=== PATIENT | male | born 1980 | race Caucasian/White ===

== ENCOUNTER → 2019-05-31 08:24 | Outpatient (BNVA) | payer BC, SELFPAY | PROVIDERS: Family Provider Electrodiagnostic Medicine; PCP Electrodiagnostic Medicine; Visit Provider Urology | DX: N20.0 Calculus of kidney (principal); N99.89 Other postprocedural complications and disorders of genitourinary system; R31.0 Gross hematuria | CPT/HCPCS: 81001; 81003 ==

== ENCOUNTER 2019-06-01 09:42 | Outpatient (CLI) | payer BC, SELFPAY ==
--- NOTE | 2019-06-01 10:01 | XR_ITS ---
WS: [id number] ABDOMEN: SUPINE FILM HISTORY: right renal stone COMPARISON: 05/28/2019 Normal bowel gas pattern. Right kidney: 8 mm calcification over the central RIGHT renal pelvis. Otherwise negative. Left kidney: No renal or ureteral stone identified. XR/XR KUB [id number] IMPRESSION: 8 mm calcification at the RIGHT renal pelvis.
== END 2019-06-01 09:43 | disposition home or self-care (01) ==
PROVIDERS: Family Provider Electrodiagnostic Medicine; PCP Electrodiagnostic Medicine; Visit Provider Urology
DX: N20.0 Calculus of kidney (principal)
CPT/HCPCS: 74018

== ENCOUNTER 2019-06-08 11:39 | Day surgery (SDC) | payer BC, SELFPAY ==
[2019-06-08] VITALS (15 sets, daily range): BP systolic 100–125; BP diastolic 53–87; PULSE 85–101; RESP 12–20; TEMP 36.3–36.6; O2SAT 95–100; BMI 27.2
--- NOTE | 2019-06-08 11:37 | XR_ITS ---
WS: [id number] KUB, 06/08/2019 Clinical Data: Preop ESWL right renal calculus Comparison: KUB, 06/01/2019. Findings: There is a density overlying the midportion of the right kidney which may represent the right intrare nal calculus. The left kidney is normal. There are phleboliths in the true pelvis. XR/XR KUB [id number] Impression: Possible right intrarenal calculus.
[2019-06-08] MEDS: phenazopyridine 100 mg Tablet 200 MG PO (12:25)
--- NOTE | 2019-06-08 12:33 | ANES.PREANES ---
Pre-Anesthetic Assessment Pre-Anesthetic Assessment: Height/Weight: Height 1.78 m Weight 86.183 kg Preop Diagnosis: kidney stones Proposed Procedure: Operation Date: 06/08/19 13:00 Proposed Procedures p Cystoscopy(Not Applicable) - Ander Allred MD s Ureteral Stent Placement(Not Applicable) - MD anai Gandara ESWL(Not Applicable) - Ander Allred MD Familial anesthetic complications: No history of anesthesia or family trouble Was Beta Socrates taken within 24 hours: N/A Last intake: Intake Last Liquid Date 06/07/19 Last Liquid Time 20:00 Last Solid Date 06/07/19 Last Solid Time 20:00 Social: Social History: No alcohol and No tobacco Exam: Pre-Anes Outpt Exam: alert Airway: Cervical ROM: WNL MP: 3 Additional comments: missing tooth Pulmonary: Pulmonary: None reported CV/HEM: CV/HEM: None reported : : None reported Hepatic: Hepatic: None reported GI: GI: None reported Metabolic: Metabolic: None reported Musc/skel: Musc/skel: Lower Back Pain Neuropsych: Neuropsych: None reported Anesthetic Plan: ASA status: I Anesthesia: General Risk of > 500 ml blood loss (7ml/kg in children): No PFSH Anesthesia PFSH: Social History Smoking and tobacco status: former smoker Alcohol intake: never Data Anesthesia Cardiac Studies: No Data to Display
--- NOTE | 2019-06-08 12:35 | PM.HPUD ---
H&P update H&P Update: DATE OF SURGERY/PROCEDURE: 06/08/19 DATE H&P PERFORMED: 06/01/19 H&P UPDATE INFORMATION: H&P completed within last 30 days, No changes to prior documentation and H&P is in [facility] [place] EMR on date indicated PREOP DIAGNOSIS: Right renal calculus PRIMARY INDICATION FOR PROCEDURE: Right renal calculus with intermittent gross hematuria PLANNED PROCEDURE: Operation Date: 06/08/19 13:00 Proposed Procedures p Cystoscopy(Not Applicable) - Ander Allred MD s Ureteral Stent Placement(Not Applicable) - Ander Allred MD s ESWL(Not Applicable) - Ander Allred MD Conscious Sedation: ADDITIONAL INFORMATION: Originally plan cystoscopy to assess lateralization potential of gross hematuria but he is not currently having hematuria so we will treat the stone first and then make a decision based on the results of fragmentation as to whether to leave a stent and or not Full H&P Perinent History: Medical/Surgical History: Medical History (Updated 05/31/19 @ 09:30 by Georgina Montoya APRN) Gross hematuria (Acute) Right renal stone (Acute) Family History: Family History (Updated 05/31/19 @ 08:41 by Daphnie Botello RN) Father No problems noted. Family/Other CAD (coronary artery disease) Diabetes Social History: Social History Smoking and tobacco status: former smoker Alcohol intake: never A&P Assessment and plan (1) Right renal stone: Status: Acute Code(s): N20.0 - Calculus of kidney
--- NOTE | 2019-06-08 12:41 | P.OP_ITS ---
Operative Report Post-Operative Note Date of procedure: 06/08/19 Preop Diagnosis: Right renal calculus Post-op diagnosis: same Post-op Findings: Same Procedure Done: Extracorporeal shockwave lithotripsy, NO STENT Pathology: none sent Surgeon: Ander Allred Anesthesia: general Estimated blood loss (mL): 0 Complications: None Condition: stable Operative Report Brief History: Nicola is a very pleasant healthy 38-year-old white male who presented for evaluation of gross hematuria with normal cystoscopy, physical exam, culture, but CT scan demonstrating approximately 1.5 cm right mid renal calculus. At time of cystoscopy he did not have lateralizing hematuria. Hematuria was intermittent and asymptomatic. After thorough discussion we elected to proceed with treating the stone first. Procedure: After routine preoperative evaluation examination and obtaining of informed consent he was taken to the operating suite on 06/08/2019 where general anesthesia was administered without difficulty after appropriate timeout was performed, SCDs confirmed to be functioning, preoperative antibiotics administ ered, beta-rolando protocol confirmed. Position on the Dornier unit such that the stone was located at the focal point utilizing biplanar fluoroscopy with a shock head position posteriorly. Rate of shock was at 60-70 with later advancement to 80. Intensity was initiated at 1 and advanced to 4. There was a several minute pause after about 300 shocks. Change in the stones appearance occurred early and was dramatic with no obvious visualization of the stone at the completion of the treatment.. Because of the excellent response it was decided to NOT leave a stent. He tolerated the procedure well without complications. Awakened in the operating room and returned to the recovery room in stable condition. PLANS: 1. Follow-up early next week with KUB 2. Strain all voids and bring collected specimens to the office
[2019-06-08] MEDS: levofloxacin-dextrose 5 % 500 MG/100 ML PREMIX 100 MG IV (12:55)
[2019-06-08] MEDS: sodium chloride 0.9% 1,000 ML 30 ML IV (12:55)
--- NOTE | 2019-06-08 13:10 | ANES.PREANES ---
Pre-Anesthetic Assessment Pre-Anesthetic Assessment: Height/Weight: Height 1.78 m Weight 86.183 kg Preop Diagnosis: undesired fertility Proposed Procedure: Operation Date: 06/08/19 13:00 Proposed Procedures p Cystoscopy(Not Applicable) - Ander Allred MD s Ureteral Stent Placement(Not Applicable) - Ander Allred MD s ESWL(Not Applicable) - Ander Allred MD Last intake: Intake Last Liquid Date 06/07/19 Last Liquid Time 20:00 Last Solid Date 06/07/19 Last Solid Time 20:00 PFSH Anesthesia PFSH: Social History Smoking and tobacco status: former smoker Alcohol intake: never Data Anesthesia Cardiac Studies: No Data to Display
--- NOTE | 2019-06-08 13:56 | SUR.PHASEI ---
1349 PATIENT TO OR AT THIS TIME VIA GURNEY FROM OR. PATIENT HAS ORAL AIRWAY IN PLACE. RR EVEN AND UNLABORED. PLACED ON SIMPLE MASK AT 8L, SPO2 100%.
[2019-06-08] MEDS: ondansetron 2 mg/ML SDV 2 mL 4 MG IVP ×2 (14:09→14:15)
--- NOTE | 2019-06-08 14:11 | SUR.PHASEI ---
1408 PATIENT C/O NAUSEA. ZOFRAN ADMINISTERED IVP.
[2019-06-08] MEDS: fentaNYL 50 mcg/mL INJ 2mL IVP ×2 (14:17→14:26)
--- NOTE | 2019-06-08 14:46 | SUR.PHASEI ---
8600 PATIENT TO OPS VIA GURDARCIE. RR EVEN AND UNLABORED. PWD. PAIN IN NAUSEA MUCH IMPROVED. PATIENT GIVEN SPRITE AND CRACKERS. SPOUSE NOTIFIED. PATIENT RECEIVED PAIN MEDS LESS THAN 15 MINS PRIOR TO GOING TO OPS. THIS NURSE WAS WITH PATIENT.
--- NOTE | 2019-06-08 15:55 | ANE.PACU ---
 Inpatient post-anesthesia follow up: Airway intact: Yes Vital signs: Temperature 97.4 F Pulse Rate [Monito r] 87 Respiratory Rate 18 Blood Pressure [Ri ght Arm] 123/78 Pulse Oximetry 98 Oxygen Delivery Me thod Room Air Oxygen Flow Rate 8 Fraction of Inspir ed Oxygen Hydration adequate: Yes Nausea and vomiting: No Mental status: Baseline
--- NOTE | 2019-06-08 17:03 | ANE.PACU ---
 Inpatient post-anesthesia follow up: Airway intact: Yes Vital signs: Temperature 97.4 F Pulse Rate [Monito r] 87 Respiratory Rate 18 Blood Pressure [Ri ght Arm] 123/78 Pulse Oximetry 98 Oxygen Delivery Me thod Room Air Oxygen Flow Rate 8 Fraction of Inspir ed Oxygen Hydration adequate: Yes Nausea and vomiting: No Pain level: 6 Mental status: Baseline
== END 2019-06-08 15:33 | disposition home or self-care (01) ==
PROVIDERS: Family Provider Electrodiagnostic Medicine; PCP Electrodiagnostic Medicine; Visit Provider Urology
PROC: (CPT 50590; 2019-06-08 13:00)
DX: N20.0 Calculus of kidney (principal); Z82.49 Family history of ischemic heart disease and other diseases of the circulatory system; Z83.3 Family history of diabetes mellitus; Z87.891 Personal history of nicotine dependence
CPT/HCPCS: 50590; 74018; J0330; J1100; J1956; J2001; J2370; J2405; J2704; J3010; J7030

== ENCOUNTER 2019-06-15 10:00 | Outpatient (CLI) | payer BC, SELFPAY ==
--- NOTE | 2019-06-15 10:00 | XR_ITS ---
WS: [id number] KUB, 06/15/2019 Clinical Data: RIGHT RENAL STONE Comparison: KUB, 06/08/2019. Findings: No abnormal intraabdominal masses or calcifications are seen. There is no dilatated small bowel or ev idence of obstruction. There is fecal material obscuring detail over the kidneys. There are phleboliths in the true pelvis. XR/XR KUB [id number] Impression: Negative KUB.
== END 2019-06-15 10:01 | disposition home or self-care (01) ==
LOC: RAD 10:03
PROVIDERS: Family Provider Electrodiagnostic Medicine; PCP Electrodiagnostic Medicine; Visit Provider Urology
DX: N20.0 Calculus of kidney (principal)
CPT/HCPCS: 74018; 81001

== ENCOUNTER 2019-10-30 11:56 | Outpatient (CLI) | payer BC, SELFPAY ==
--- NOTE | 2019-10-30 12:04 | XR_ITS ---
WS: [id number] XR foot LT min 3V* [id number] REASON FOR EXAM: LEFT FOOT PAIN FINDINGS: The phalanges, metatarsals, tarsals all appear to be normal. The calcaneus was normal no fractures of the foot or other dyscrasias. XR/XR foot LT min 3V* [id number] IMPRESSION: Negative left foot.
== END 2019-10-30 11:57 | disposition home or self-care (01) ==
LOC: RAD 11:59
PROVIDERS: PCP Electrodiagnostic Medicine; Visit Provider Nurse Practitioner Family
DX: M79.672 Pain in left foot (principal)
CPT/HCPCS: 73630

== ENCOUNTER → 2020-04-14 15:36 | Outpatient (BNVA) | payer BC, SELFPAY | PROVIDERS: PCP Electrodiagnostic Medicine; Visit Provider Nurse Practitioner Family | DX: Z11.59 Encounter for screening for other viral diseases (principal); J06.9 Acute upper respiratory infection, unspecified | CPT/HCPCS: 87635 ==

== ENCOUNTER → 2021-10-13 09:37 | Outpatient (BNVA) | payer BC, SELFPAY | PROVIDERS: PCP Family Medicine; Visit Provider Family Medicine | DX: Z00.00 Encounter for general adult medical examination without abnormal findings (principal); Z13.220 Encounter for screening for lipoid disorders; Z13.1 Encounter for screening for diabetes mellitus | CPT/HCPCS: 80053; 80061; 83036; 85025 ==

== ENCOUNTER 2021-11-26 08:05 | Day surgery (SDC) | payer BC, SELFPAY ==
[2021-11-25 10:05] VITALS: BMI 30.2
[2021-11-26 08:29] VITALS: BP 133/93; PULSE 89; RESP 18; TEMP 36.6; O2SAT 99
[2021-11-26] MEDS: sodium chloride 0.9% 1,000 ML 30 ML IV (08:46)
--- NOTE | 2021-11-26 08:54 | P.ANESASSM_ITS ---
Pre-Anesthetic Assessment Height/Weight: Height 1.78 m Weight 95.708 kg Temp Pulse Resp BP Pulse Ox 97.8 F 89 18 133/93 99 11/26/21 08:29 11/26/21 08:29 11/26/21 08:29 11/26/21 08:29 11/26/21 08:29 Preop Diagnosis: Trigger fingerLeft middle left middle finger Operation Date: 11/26/21 09:55 Proposed Procedures p Trigger finger release of the left middle finger:55937,M65.332(Not Applicable) - Juancarlos Sauceda MD Familial anesthetic complications: None Was Beta Socrates taken within 24 hours: N/A Was Clonidine taken within 24 hours: N/A Last intake: Intake Last Liquid Date 11/25/21 Last Liquid Time 22:30 Last Solid Date 11/25/21 Last Solid Time 21:00 Social No alcohol and No tobacco Exam alert, oriented x 3, clear to auscultation bilaterally and regular rate & rhythm Airway Submandibular: within normal limits Cervical ROM: within normal limits Mallampati: Class I Dentition: full History/ROS No significant complaints Pulmonary None reported CV/HEM None reported Hx of hematuria Hepatic None reported GI None reported Metabolic None reported Musc/skel Psoriasis Neuropsych None reported Anesthetic Plan ASA status: 2 Anesthesia: Anesthesia Evaluation, General and Regional (specify below) ([place] block ) Other: We discussed risk and benefits of general, MAC, and regional (Homero block) anesthesia including PONV, sore throat (sometimes severe), corneal abrasion, positioning and peripheral nerve injuries, life threatening allergic reaction, LAST, post operative ICU admission requiring prolonged intubation, stroke, heart attack, , failed block, tourniquet pain/discomfort, possibility of recall of intraoperative stimuli including discomfort/pain/pressure. Patient consents to proceed with MAC and [place] block anesthesia with conversion to general if needed. Risk of > 500 ml blood loss (7ml/kg in children): No Medications/Allergies Home Medications Medication Instructions Recorded Confirmed Last Taken Type guselkumab 100 mg/mL subcutaneous 100 mg SUBCUT .[id number] ml 04/14/20 11/26/21 Unknown History auto-injector (Tremfya) Allergies Allergy/AdvReac Type Severity Reaction Status Date / Time Sulfa (Sulfonamide Allergy Unknown unknown Verified 11/26/21 08:17 Antibiotics) Current Medications Generic Name Dose Route Start Last Admin Trade Name Freq PRN Reason Stop Dose Admin Sodium Chloride 1,000 mls @ 30 mls/hr 11/26/21 08:15 11/26/21 08:46 Sodium Chloride 0.9% IV 11/27/21 08:14 30 mls/hr .Q24H CHRIS Administration PFSH Anesthesia Medical History Gross hematuria Right renal stone ESWL May 2019 with clearance Family History Father No problems noted. Family/Other CAD (coronary artery disease) Diabetes Social History Smoking and tobacco status: never smoked Alcohol intake: never Data Anesthesia Cardiac Studies: No Data to Display
--- NOTE | 2021-11-26 09:59 | W.PM.OPSUD ---
Surgery/Procedure H&P Update DATE OF PROCEDURE: November 26, 2021 DATE H&P PERFORMED: 11/11/21 H&P UPDATE INFORMATION: I have reviewed H&P completed within last 30 days PREOP DIAGNOSIS: Trigger fingerLeft middle left middle finger PLANNED PROCEDURE: Operation Date: 11/26/21 09:55 Proposed Procedures p Trigger finger release of the left middle finger:[id number],M65.332(Not Applicable) - Juancarlos Sauceda MD
[2021-11-26 10:52] VITALS: BP 141/83; PULSE 88; RESP 17; TEMP 36.4; O2SAT 99
[2021-11-26 10:55] VITALS: BP 147/89; PULSE 89; RESP 18; O2SAT 100
[2021-11-26 11:00] VITALS: BP 149/86; PULSE 78; RESP 16; TEMP 36.2; O2SAT 100
--- NOTE | 2021-11-26 11:02 | P.OP_ITS ---
Operative Report Date of procedure: November 26, 2021 Pre-op diagnosis: Preop Diagnosis Trigger fingerLeft middle left middle finger Post-op diagnosis: same Procedure done: Trigger finger release left middle finger Surgeon: Juancarlos Sauceda Anesthesia: Nerve Block (Homero block) Estimated blood loss (mL): 2 20 Findings: No abnormalities were identified of the A1 wilberto or flexor tendons of the left long finger Condition: stable Disposition: PACU Procedure: The patient's hand was prepped in the usual fashion. A timeout was performed. I transverse incision was made over the level of a 1 wilberto in the palm over a distance of approximately a centimeter and a half. Under loupe magnification bl unt dissection was accomplished down to the A1 wilberto. With adequate visualization a scalpel was used to divide the central 8 mm of that structure. Blunt scissors were then used to extend the release approximately 5 mm proximally and 5 mm distally. Tendons were pulled the road and inspected to assure there health. Skin edges were infiltrated with 4 cc of 0.5%n Marcaine. The skin edges were closed with 3-0 Prolene compressive dressings were applied.
[2021-11-26 11:10] VITALS: BP 140/96; PULSE 83; RESP 16; TEMP 36.2; O2SAT 98
[2021-11-26 11:24] VITALS: BP 133/80; PULSE 72; RESP 16; TEMP 36.4; O2SAT 100
--- NOTE | 2021-11-26 14:45 | ANE.PACU2 ---
Inpatient post-anesthesia follow up: Airway intact: Yes Vital signs: Temperature 97.5 F Pulse Rate 72 Respiratory Rate 16 Blood Pressure 133/80 Pulse Oximetry 100 Oxygen Delivery Me thod Room Air Oxygen Flow Rate 6 Fraction of Inspir ed Oxygen Hydration adequate: Yes Nausea and vomiting: No Pain level: 1 Mental status: Baseline
== END 2021-11-26 11:41 | disposition home or self-care (01) ==
PROVIDERS: PCP Family Medicine; Visit Provider Orthopaedic Surgery
PROC: (CPT 26055; principal; 2021-11-26 09:45)
DX: M65.332 Trigger finger, left middle finger (principal)
CPT/HCPCS: 26055; J2704; J3010; J3490; J7030

== ENCOUNTER 2022-03-02 17:38 | Outpatient (CLI) | payer BC, SELFPAY ==
--- NOTE | 2022-03-02 17:46 | XR_ITS ---
WS: [id number] XR chest 2V* [id number] REASON FOR EXAM: Chest pain, pleuritis, dyspnea FINDINGS: The heart and mediastinum are within normal limits. Calcified granulomatous disease in both hemithoraces. No active pulmonary parenchymal or pleural disease noted. Mild changes of degenerative spondylosis in the mid thoracic spine. XR/XR chest 2V* [id number] IMPRESSION: No acute chest abnormality.
== END 2022-03-02 17:39 | disposition home or self-care (01) ==
LOC: RAD 17:40
PROVIDERS: PCP Family Medicine; Visit Provider Family Medicine
DX: R07.9 Chest pain, unspecified (principal); R09.1 Pleurisy
CPT/HCPCS: 71046; J1885

== ENCOUNTER → 2023-12-06 09:42 | Outpatient (BNVA) | payer BC, SELFPAY | PROVIDERS: PCP Family Medicine; Visit Provider Family Medicine | DX: R10.13 Epigastric pain (principal); Z51.81 Encounter for therapeutic drug level monitoring; Z13.220 Encounter for screening for lipoid disorders | CPT/HCPCS: 80053; 80061; 83690; 85025 ==

== ENCOUNTER 2023-12-22 09:30 | Outpatient (CLI) | payer BC, SELFPAY ==
--- NOTE | 2023-12-22 09:30 | US_ITS ---
WS: [id number] RIGHT UPPER QUADRANT ULTRASOUND HISTORY: RUQ US - RUQ abd pain and epigastric pain COMPARISON: None available. Liver: 14.4 cm in length. Normal size liver.Hyperechoic mass in the posterior liver measures 1.7 x 1. 3 x 1.5 cm. These images are not labeled sufficiently to determine the exact location of this mass. I suspect it is within the LEFT lobe. No bile duct dilatation. Portal Vein: Normal hepatopetal flow with monophasic waveform. Gallbladder: Normally distended gallbladder with no stones or wall thickening. CBD: 0.3 cm Pancreas: Normal size and echogenicity. Right kidney: 10.7 cm in length. Normal size and echogenicity. No hydronephrosis or mass. Aorta and IVC: Unremarkable abdominal aorta and IVC. No ascites. US/US abdomen limited [id number] IMPRESSION: 1. Normal gallbladder. 2. Hepatic hemangioma, 1.7 x 1.3 x 1.5 cm.
== END 2023-12-22 09:31 | disposition home or self-care (01) ==
PROVIDERS: PCP Family Medicine; Visit Provider Family Medicine
DX: R10.13 Epigastric pain (principal); R10.11 Right upper quadrant pain; R16.0 Hepatomegaly, not elsewhere classified
CPT/HCPCS: 76705

== ENCOUNTER → 2024-01-02 11:37 | Outpatient (BNVA) | payer BC, SELFPAY | PROVIDERS: PCP Family Medicine; Visit Provider Clinical Nurse Specialist Adult Health | DX: G44.009 Cluster headache syndrome, unspecified, not intractable (principal); G44.019 Episodic cluster headache, not intractable | CPT/HCPCS: 80048; 85025; 85651; 86140 ==

== ENCOUNTER → 2024-03-13 18:40 | Outpatient (BNVA) | payer BC, SELFPAY | PROVIDERS: PCP Family Medicine; Visit Provider Family Medicine | DX: R11.2 Nausea with vomiting, unspecified (principal) | CPT/HCPCS: 87400; 87426 ==